=== PATIENT | female | born 1970 | race Hispanic/Latino ===

== ENCOUNTER 2020-10-12 15:47 | Emergency (ER) | payer OTHER, SELFPAY ==
[2020-10-12] MEDS ORDERED: Fentanyl 100 MCG/2 ML VIAL ONE (16:18)
[2020-10-12 16:41] LABS: #Basophils 0.1 10x3/uL (0.0-0.2); #Eosinphils 0.2 10x3/uL (0.0-0.5); #Monocytes 0.5 10x3/uL (0.0-1.1); #Neutrophils 5.6 10x3/uL (1.5-8.4); %Basophils 0.6 % (0.0-2.0); %Eosinophils 2.6 % (0.0-6.0); %Lymphocytes 24.8 % (18.0-47.0); %Monocytes 5.7 % (0.0-10.0); %Neutrophils 65.9 % (40.0-75.0); Hemoglobin 12.7 g/dL (12.0-15.5); Mean Corpuscular HGB CONC 32.3 g/dL (32.0-36.0); Mean Corpuscular Hemoglobin 26.5 pg (27.0-33.0); Mean Corpuscular Volume 81.9 fl (81.6-98.3); Platelet Count 322 10x3/uL (150-450); RBC Distribution Width 13.9 % (11.5-14.5); White Blood Cell (WBC) Count 8.4 10x3/uL (3.5-10.5)
[2020-10-12 16:59] LABS: INR-International Normal Ratio 0.9; PTT 29.2 sec (22.0-33.0); Prothrombin Time 10.3 sec (9.5-12.1)
[2020-10-12 17:00] LABS: BHCG - Serum Negative (NEGATIVE); Pregs Control Background? CLEAR/WHITE (CLR/WHITE); Pregs Control Bar Appear? YES (CONTROL BAR)
[2020-10-12 17:10] LABS: ALT (SGPT) 31 U/L (8-55); AST (SGOT) 29 U/L (5-34); Albumin 4.2 g/dL (3.5-5.0); Alkaline Phosphatase 120 U/L (40-110); Anion Gap 13 mmol/L (10-20); BUN (Urea Nitrogen) 13 mg/dL (9.8-20.1); Bilirubin, Total 0.3 mg/dL (0.2-1.2); Calc. Creatinine Clearance 0 mL/min (70-130); Calcium 9.3 mg/dL (7.8-10.44); Carbon Dioxide 26 mmol/L (22-29); Chloride 103 mmol/L (98-107); Globulin 3.9 g/dL (2.4-3.5); Glucose 103 mg/dL (70-105); Lipase 38 U/L (8-78); Protein, Total 8.1 g/dL (6.0-8.3); Sodium 138 mmol/L (136-145)
== END 2020-10-12 18:00 | disposition home or self-care (01) ==
LOC: CSHERS 15:47
DX: S13.9XXA Sprain of joints and ligaments of unspecified parts of neck, initial encounter (principal); R29.700 NIHSS score 0; E03.9 Hypothyroidism, unspecified; V49.40XA Driver injured in collision with unspecified motor vehicles in traffic accident, initial encounter
CPT/HCPCS: 36415; 70450; 71045; 72125; 72170; 80053; 83690; 84703; 85025; 85610; 85730; 86850; 86900; 86901; 96374; J3010